=== PATIENT | male | born 2000 | race Caucasian/White ===

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

== ENCOUNTER 2019-03-17 18:18 | Emergency (ER) | payer SELFPAY ==
[2019-03-17] MEDS ORDERED: MAG HYDROX/AL HYDROX/SIMETH SUSP 30 ML UDCUP PO ONE (18:34)
[2019-03-17] MEDS ORDERED: LIDOCAINE 2% VISCOUS SOLN 15 ML UDCUP PO ONE (18:34)
--- NOTE | 2019-03-17 18:34 | ER Document Report ---
ED Medical Screen (RME) - General Chief Complaint: Abdominal Pain Stated Complaint: UPPER GASTRIC PAIN Time Seen by Provider: 03/17/19 18:30 - HPI Notes: 03/17/19 18:33 Patient is a 18-year-old male with no significant past medical history who presents complaining of epigastric abdominal pain that is been present for the past 2 days. The pain does not radiate. He is able to urinate normally and having normal bowel movements. He is still able to eat and drink. No fever, chest pain, shortness of breath. I have treated and performed a rapid initial assessment of this patient. A comprehensive ED assessment and evaluation of the patient, analysis of test results and completion of medical decision making process will be conducted by additional ED providers. PHYSICAL EXAMINATION: GENERAL: Well-appearing, well-nourished and in no acute distress. A&Ox4. Answers questions appropriately. Abdomen: Limited exam in triage, there is epigastric abdominal tenderness noted. No obvious right upper quadrant tenderness. - Related Data Allergies/Adverse Reactions: No Known Allergies Allergy (Unverified 03/17/19 18:30) Past Medical History Renal/ Medical History: Denies: Hx Peritoneal Dialysis Physical Exam - Vital signs Vitals: Temp Pulse Resp BP Pulse Ox 97.5 F 54 L 14 151/59 H 97 03/17/19 18:22 03/17/19 18:22 03/17/19 18:22 03/17/19 18:22 03/17/19 18:22 Course - Vital Signs Vital signs: Temp Pulse Resp BP Pulse Ox 97.5 F 54 L 14 151/59 H 97 03/17/19 18:22 03/17/19 18:22 03/17/19 18:22 03/17/19 18:22 03/17/19 18:22
[2019-03-17 19:00] LABS: ABSOLUTE BASOPHILS # (AUTO) 0.1 10^3/uL (0.0-0.2); ABSOLUTE EOSINOPHILS # (AUTO) 0.3 10^3/uL (0.0-0.6); ABSOLUTE LYMPHOCYTES (AUTO) 2.3 10^3/uL (0.5-4.7); ABSOLUTE MONOCYTES (AUTO) 0.7 10^3/uL (0.1-1.4); ABSOLUTE NEUT (AUTO) 4.4 10^3/uL (1.7-8.2); BASOPHILS % (AUTO) 0.7 % (0-2); EOSINOPHILS % (AUTO) 4.1 % (0-6); HEMATOCRIT 42.9 % (37.9-51.0); HEMOGLOBIN 15.1 g/dL (13.5-17.0); LYMPHOCYTES % (AUTO) 29.7 % (13-45); MEAN CORPUSCULAR HEMOGLOBIN 28.6 pg (27.0-33.4); MEAN CORPUSCULAR HGB CONC 35.1 g/dL (32.0-36.0); MEAN CORPUSCULAR VOLUME 81 fl (80-97); MONOCYTES % (AUTO) 8.7 % (3-13); PLATELET COUNT 368 10^3/uL (150-450); RED BLOOD COUNT 5.27 10^6/uL (4.35-5.55); RED CELL DISTRIBUTION WIDTH 14.2 % (11.5-14.0); SEGMENTED NEUTROPHILS % (AUTO) 56.8 % (42-78); TOTAL CELLS COUNTED % (AUTO) 100 %; WHITE BLOOD COUNT 7.7 10^3/uL (4.0-10.5)
[2019-03-17 19:20] LABS: ALBUMIN 4.7 g/dL (3.7-5.6); ALKALINE PHOSPHATASE 62 U/L (65-260); ANION GAP 8 (5-19); ASPARTATE AMINO TRANSFERASE 23 U/L (10-45); BILIRUBIN,TOTAL 0.2 mg/dL (0.2-1.3); BLOOD UREA NITROGEN 10 mg/dL (7-20); CALCIUM 9.9 mg/dL (8.4-10.2); CARBON DIOXIDE 30 mmol/L (22-30); CHLORIDE 104 mmol/L (98-107); GLUCOSE 72 mg/dL (75-110); POTASSIUM 4.2 mmol/L (3.6-5.0); TOTAL PROTEIN 7.5 g/dL (6.3-8.2)
[2019-03-17 19:43] LABS: APPEARANCE,URINE CLOUDY; BILIRUBIN,URINE NEGATIVE (NEGATIVE); COLOR,URINE YELLOW; GLUCOSE, URINE NEGATIVE (NEGATIVE); KETONES,URINE NEGATIVE (NEGATIVE); PROTEIN,URINE 30 mg/dL (NEGATIVE); URINE SPECIFIC GRAVITY 1.025; UROBILINOGEN,URINE NEGATIVE mg/dL (<2.0)
--- NOTE | 2019-03-17 19:56 | ER Document Report ---
ED GI/ - General Chief Complaint: Abdominal Pain Stated Complaint: UPPER GASTRIC PAIN Time Seen by Provider: 03/17/19 18:30 Notes: HPI: Patient is a 18-year-old male who presents today stating around 2 days of some intermittent epigastric nonradiating abdominal "sharpness". He does state it is slightly worse after he eats. He denies any radiation to the chest or to the lower abdomen. He denies any cough, congestion, or fevers. No real aggravating relieving factors otherwise. ROS: See HPI All other review of systems reviewed and otherwise negative Reviewed vital signs and nursing note as charted by RN. PHYSICAL EXAM: CONSTITUTIONAL: Alert and oriented and responds appropriately to questions. Well-appearing; well-nourished HEAD: Normocephalic; atraumatic EYES: Sclerae non-icteric ENT: Normal nose; no rhinorrhea; moist mucous membranes; pharynx without lesions noted NECK: Supple without meningismus; non-tender; no cervical lymphadenopathy, no masses CARD: Regular rate and rhythm; no murmurs; symmetric distal pulses RESP: Normal chest excursion without splinting or tachypnea; breath sounds clear and equal bilaterally ABD/GI: Normal bowel sounds; non-distended; soft, very minimally tender to the epigastric region without rebound or guarding. No distinct right upper quadrant tenderness BACK: The back appears normal and is non-tender to palpation EXT: Normal ROM in all joints; non-tender to palpation; no edema SKIN: No acute lesions noted NEURO: CN 2-12 intact; 5/5 bilateral upper and lower extremity strength with sensation intact to light touch PSYCH: The patient's mood and manner are appropriate. Grooming and personal hygiene are appropriate. TRAVEL OUTSIDE OF THE [place] IN LAST 30 DAYS: No - Related Data Allergies/Adverse Reactions: No Known Allergies Allergy (Unverified 03/17/19 18:30) Past Medical History - Social History Smoking Status: Former Smoker Drug Abuse: Marijuana Family History: Reviewed & Not Pertinent Patient has suicidal ideation: No Patient has homicidal ideation: No Renal/ Medical History: Denies: Hx Peritoneal Dialysis Physical Exam - Vital signs Vitals: Temp Pulse Resp BP Pulse Ox 97.5 F 54 L 14 151/59 H 97 03/17/19 18:22 03/17/19 18:22 03/17/19 18:22 03/17/19 18:22 03/17/19 18:22 Course - Re-evaluation Re-evalutation: Given the history and physical examination, I will obtain a liver panel, lipase, right upper quadrant ultrasound, and provide a GI cocktail. Patient has no lower abdominal tenderness and therefore I do believe acute appendicitis to be unlikely. No radiation to the chest without any chest pain or shortness of breath leads me to believe ACS, PE, and dissection to also be extremely unlikely. 03/17/19 19:55 Initial labs as recorded. 03/17/19 20:38 Labs and imaging as recorded. Patient is symptom-free currently. Vital signs are stable. Patient does not have insurance so I will provide the [facility] for follow-up as well as instructions regarding Prilosec. - Vital Signs Vital signs: Temp Pulse Resp BP Pulse Ox 97.5 F 54 L 14 151/59 H 97 03/17/19 18:22 03/17/19 18:22 03/17/19 18:22 03/17/19 18:22 03/17/19 18:22 - Laboratory Result Diagrams: 03/17/19 18:48 03/17/19 18:48 Laboratory results interpreted by me: 03/17/19 03/17/19 03/17/19 18:48 18:48 18:48 RDW 14.2 H Glucose 72 L Alkaline Phosphatase 62 L Urine Protein 30 H Discharge - Discharge Clinical Impression: Epigastric abdominal pain Condition: Good Disposition: HOME, SELF-CARE Additional Instructions: Come back immediately for any increased pain, change in location or quality of pain, fevers or vomiting, lower abdominal pain, or any other acute problems. Please make sure that you follow-up with the primary care physician and possibly the mannequin mounter as we have provided. Please make sure that you take Prilosec [id number] tablets once daily for the next 3 months. Referrals: EMILIANA CAST MD [ACTIVE STAFF] - Follow up as needed
--- NOTE | 2019-03-17 20:27 | RADIOLOGY REPORT (SQ) ---
EXAM DESCRIPTION: [facility]: US ABDOMEN LIMITED CLINICAL HISTORY: 18 years Male; 37; RUQ pain; TECHNIQUE: Right upper quadrant ultrasound was performed. COMPARISON: None. FINDINGS: Pancreas: Visualized portions are unremarkable. Liver: 15.6 cm long. No focal lesion or ductal distention. Portal venous flow is hepatopedal, normal. Gallbladder: normal with no gallstones or sonographic evidence for acute cholecystitis. No pericholecystic fluid. No sonographic Guerrero's sign. Common bile duct: 2 mm. Right kidney: 10.7 cm long. No hydronephrosis. IMPRESSION: 1. Normal right upper quadrant ultrasound.
[2019-03-17 20:57] VITALS: BP 116/66
== END 2019-03-17 20:55 | disposition home or self-care (01) ==
LOC: ER 18:18
DX: R10.13 Epigastric pain (principal); R10.10 Upper abdominal pain, unspecified
CPT/HCPCS: 36415; 83690; 85025; 80053; 81001; 76705; J3490; 99284